=== PATIENT | male | born 1985 | race Caucasian/White ===

== ENCOUNTER 2017-06-12 21:12 | Emergency (ER) | payer SELFPAY ==
[~2017-06-12] VITALS: Ht 190.5 cm; Wt 129.3 kg
[~2017-06-12 21:12] MED LIST: AZIT-21 PO; FAMO20TA5 PO; ONDA8TAB9 PO; TRM50T PO
--- OUTSIDE RECORDS SUMMARY | 2017-06-12 21:17 | XMS REPORT | Continuity of Care Document ---
Author Author [facility] Address Unknown Phone Unavailable Allergies Active Description Code Type Severity Reaction Onset Reported/Identified Relationship to Patient Clinical Status Yes aspirin Drug Allergy N/A N/A 06/08/2008 Yes bleach OA N/A N/A 06/08/2008 Yes aspirin Drug Allergy 06/08/2008 Yes bleach OA 06/08/2008 Yes Hydrocodone Drug Allergy N/A N/A 06/12/2011 Yes Hydrocodone Drug Allergy 06/12/2011 Medications There is no data. Problems Date Dx Coded Attending Type Code Diagnosis Diagnosed By 02/28/2008 724.2 lower back pain 02/28/2008 UNIQUE IBRAHIM APRN 724.2 lower back pain 05/27/2008 V74.5 SCREENING EXAMINATION FOR VENEREAL DISEASE 05/27/2008 UNIQUE IBRAHIM APRN V74.5 SCREENING EXAMINATION FOR VENEREAL DISEASE 06/08/2008 786.07 wheezing [as a symptom] 06/08/2008 UNIQUE IBRAHIM APRN 786.07 wheezing [as a symptom] 06/11/2008 305.1 NICOTINE DEPENDENCE 06/11/2008 UNIQUE IBRAHIM APRN 305.1 NICOTINE DEPENDENCE 12/11/2008 311 DEPRESSIVE DISORDER NOT ELSEWHERE CLASSIFIED 12/11/2008 401.1 ESSENTIAL HYPERTENSION BENIGN 12/11/2008 493.00 EXTRINSIC ASTHMA UNSPECIFIED 12/11/2008 UNIQUE IBRAHIM APRN 311 DEPRESSIVE DISORDER NOT ELSEWHERE CLASSIFIED 12/11/2008 UNIQUE IBRAHIM APRN 401.1 ESSENTIAL HYPERTENSION BENIGN 12/11/2008 UNIQUE BIRAHIM APRN 493.00 EXTRINSIC ASTHMA UNSPECIFIED 12/14/2010 611.72 LUMP OR MASS IN BREAST 12/14/2010 UNIQUE IBRAHIM APRN 611.72 LUMP OR MASS IN BREAST 07/21/2011 724.3 SCIATICA 07/21/2011 UNIQUE IBRAHIM APRN 724.3 SCIATICA 12/13/2011 079.99 VIRAL SYNDROME 12/13/2011 UNIQUE IBRAHIM APRN 079.99 VIRAL SYNDROME 12/27/2011 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 Results There is no data. Encounters ACCT No. Visit Date/Time Discharge Status Pt. Type Provider Facility Loc./Unit Complaint [id number] 10/01/2013 11:32:00 10/01/2013 23:59:59 [facility] Outpatient UNIQUE IBRAHIM APRN [id number] 08/27/2012 14:03:00 Document Registration
[2017-06-12] MEDS ORDERED: KETOROLAC 30 MG/ML VIAL IVP ONE (21:45)
[2017-06-12] MEDS ORDERED: NS IV 1000 ML 1,000 ML IV SCH (21:45)
[2017-06-12 21:47] LABS: BILIRUBIN,URINE NEGATIVE (NEGATIVE); CLARITY,URINE CLEAR; COLOR,URINE YELLOW; GLUCOSE, URINE (UA) NEGATIVE (NEGATIVE); KETONES,URINE NEGATIVE (NEGATIVE); LEUKOCYTE ESTERASE ,URINE NEGATIVE (NEGATIVE); NITRITE,URINE NEGATIVE (NEGATIVE); PH,URINE 5 (5-9); PROTEIN,URINE NEGATIVE (NEGATIVE); UROBILINOGEN,URINE NORMAL (NORMAL)
[2017-06-12 21:56] LABS: BACTERIA,URINE NEGATIVE /HPF; WBC,URINE 0-2 /HPF
[2017-06-12] MEDS ORDERED: CYCL5TAB PO (22:00)
[2017-06-12] MEDS ORDERED: PRD20T PO (22:00)
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
[2017-06-12 22:11] LABS: BASOPHILS % (AUTO) 0 % (0-10); EOSINOPHILS # (AUTO) 0.1 10^3/uL (0.0-0.3); EOSINOPHILS % (AUTO) 1 % (0-10); HEMATOCRIT 43 % (40-54); HEMOGLOBIN 14.6 G/DL (13.3-17.7); LYMPHOCYTES # (AUTO) 3.1 X 10^3 (1.0-4.0); LYMPHOCYTES % (AUTO) 41 % (12-44); MEAN CORPUSCULAR HEMOGLOBIN 30 PG (25-34); MEAN CORPUSCULAR HGB CONC 34 G/DL (32-36); MEAN CORPUSCULAR VOLUME 86 FL (80-99); MEAN PLATELET VOLUME 8.8 FL (7.4-10.4); MONOCYTES # (AUTO) 0.5 X 10^3 (0.0-1.0); MONOCYTES % (AUTO) 7 % (0-12); NEUTROPHILS # (AUTO) 3.8 X 10^3 (1.8-7.8); NEUTROPHILS % (AUTO) 51 % (42-75); PLATELET COUNT 323 10^3/uL (130-400); RED BLOOD COUNT 4.93 10^6/uL (4.35-5.85); WHITE BLOOD COUNT 7.5 10^3/uL (4.3-11.0)
[2017-06-12 22:28] LABS: BUN/CREATININE RATIO 8; CALCIUM 9.3 MG/DL (8.5-10.1); CARBON DIOXIDE 24 MMOL/L (21-32); CHLORIDE 105 MMOL/L (98-107); CREATININE SERUM 0.84 MG/DL (0.60-1.30); GFR ESTIMATED > 60; GLUCOSE 89 MG/DL (70-105); POTASSIUM 3.8 MMOL/L (3.6-5.0); SODIUM 141 MMOL/L (135-145)
[2017-06-12 22:33] VITALS: BP 136/90
[2017-06-12] MEDS ORDERED: RX-TRAMADOL 50 MG (ULTRAM) TAB PPK#4 PO STA (22:36)
== END 2017-06-12 22:43 | disposition home or self-care (01) ==
LOC: EDUNIT# 21:12 → ER 21:14
DX: M54.32 Sciatica, left side (principal); J45.909 Unspecified asthma, uncomplicated; F17.210 Nicotine dependence, cigarettes, uncomplicated; Z88.5 Allergy status to narcotic agent; Z88.6 Allergy status to analgesic agent
CPT/HCPCS: 36415; 74176; 80048; 81000; 85025; 96361; 96374